=== PATIENT | male | born 1945 | race Caucasian/White ===

== ENCOUNTER 2019-01-24 17:43 | Emergency (ER) | payer OTHER ==
[~2019-01-24] VITALS: Ht 177.8 cm; Wt 105.2 kg
[~2019-01-24 17:43] MED LIST: AMLODIPINE BESYL5 MG PO; ASPIRIN81 M2 PO; BENADRYL ALLERG25 MG PO; DELUXE TABLET1 EACH; DOXYCYCLINE 10100 M1 PO; GRALISE600 MG PO; KEFLEX250 MG PO; OXYCODONE HCL15 MG PO; PROSCAR 5MG TABL5 M1 PO; SUDAFED 12 HOU120 MG PO; WELLBUTRIN 100100 MG PO
[2019-01-24] MEDS ORDERED: ALPRAZOLAM XR3 MG PO (17:52)
[2019-01-24] MEDS ORDERED: AMITRIPTYLINE H10 M1 PO (17:53)
[2019-01-24] MEDS ORDERED: ASA81BEC PO (17:53)
[2019-01-24] MEDS ORDERED: BUPROPION HCL100 MG PO (17:53)
[2019-01-24] MEDS ORDERED: BUPROPION XL300 MG PO (17:54)
[2019-01-24] MEDS ORDERED: VITAMIN D35000 UNI2 PO (17:54)
[2019-01-24] MEDS ORDERED: COLACE100 MG PO (17:55)
[2019-01-24] MEDS ORDERED: FAMOTIDINE 20 M20 MG PO (17:55)
[2019-01-24] MEDS ORDERED: DORYX MPC120 MG PO (17:55)
[2019-01-24] MEDS ORDERED: FUROSEMIDE 40 M40 MG PO (17:56)
[2019-01-24] MEDS ORDERED: NEURONTIN100 MG PO (17:56)
[2019-01-24] MEDS ORDERED: MUCUS ER600 M1 PO (17:56)
[2019-01-24] MEDS ORDERED: MELATONIN5 MG PO (17:57)
[2019-01-24] MEDS ORDERED: LISINOPRIL2.5 MG PO (17:57)
[2019-01-24] MEDS ORDERED: PERCOCET 10-321 EAC1 PO (17:58)
[2019-01-24] MEDS ORDERED: KLOR-CON 1010 MEQ PO (17:59)
[2019-01-24] MEDS ORDERED: MIRALAX119 GM PO (17:59)
[2019-01-24] MEDS ORDERED: FLOMAX0.4 MG PO (18:00)
[2019-01-24 19:01] LABS: HEMATOCRIT 40.5 % (42.0-52.0); HEMOGLOBIN 13.9 gm/dL (14.0-18.0); MCH 32.9 pg (26.0-34.0); MCHC 34.3 g/dL (28.0-37.0); PLATELET COUNT 292 thou/uL (150-400); RBC 4.22 mil/uL (4.50-6.00); RDW 14.2 % (10.5-14.5); WBC 18.4 thou/uL (4.0-11.0)
[2019-01-24 19:17] LABS: CALCIUM 9.6 mg/dL (8.5-10.1); CREATININE 1.3 mg/dL (0.7-1.3); POTASSIUM 3.6 mmol/L (3.5-5.1)
[2019-01-24 19:22] LABS: ALBUMIN 3.9 g/dL (3.4-5.0); TOTAL BILIRUBIN 0.6 mg/dL (<0.1-1.0); TOTAL PROTEIN 7.9 g/dL (6.4-8.2)
[2019-01-24 19:32] LABS: ABSOLUTE NEUTROPHILS 16.9 thou/uL (1.4-8.2)
[2019-01-24 21:16] LABS: URINE BILIRUBIN NEGATIVE (Negative); URINE BLOOD NEGATIVE (Negative); URINE CLARITY CLEAR; URINE COLOR YELLOW; URINE GLUCOSE-RANDOM* NEGATIVE (Negative); URINE KETONES TRACE (Negative); URINE LEUKOCYTES-REFLEX NEGATIVE (Negative); URINE NITRITE-REFLEX NEGATIVE (Negative); URINE PROTEIN (DIPSTICK) NEGATIVE (Negative); URINE SPECIFIC GRAVITY 1.025 (1.005-1.035); URINE UROBILINOGEN 0.2 E.U./dl (0.2-1.0)
[2019-01-24] MEDS ORDERED: AUGMENTIN 875-1 EACH PO (22:56)
[2019-01-24 23:57] VITALS: BP 154/88
[2019-01-25] MEDS ORDERED: TESSALON PERLE100 MG PO (18:01)
[2019-01-25] MEDS ORDERED: AUGMENTIN 875-1 EACH PO (18:01)
== END 2019-01-24 23:57 | disposition home or self-care (01) ==
LOC: ER 17:43
PROVIDERS: Emergency Medicine
DX: K59.00 Constipation, unspecified (principal); J22 Unspecified acute lower respiratory infection; E66.9 Obesity, unspecified; M47.812 Spondylosis without myelopathy or radiculopathy, cervical region; Z79.82 Long term (current) use of aspirin; Z79.899 Other long term (current) drug therapy; Z98.890 Other specified postprocedural states

== ENCOUNTER 2019-01-25 15:01 | Emergency (ER) | payer OTHER ==
[~2019-01-25] VITALS: Ht 177.8 cm; Wt 104.3 kg
[~2019-01-25 15:01] MED LIST changes: +ALPRAZOLAM XR3 MG PO; +AMITRIPTYLINE H10 M1 PO; +ASA81BEC PO; +AUGMENTIN 875-1 EACH PO; +BUPROPION HCL100 MG PO; +BUPROPION XL300 MG PO; +COLACE100 MG PO; +DORYX MPC120 MG PO; +FAMOTIDINE 20 M20 MG PO; +FLOMAX0.4 MG PO; +FUROSEMIDE 40 M40 MG PO; +KLOR-CON 1010 MEQ PO; +LISINOPRIL2.5 MG PO; +MELATONIN5 MG PO; +MIRALAX119 GM PO; +MUCUS ER600 M1 PO; +NEURONTIN100 MG PO; +PERCOCET 10-321 EAC1 PO; +VITAMIN D35000 UNI2 PO
[2019-01-25 16:19] LABS: URINE BILIRUBIN NEGATIVE (Negative); URINE BLOOD NEGATIVE (Negative); URINE CLARITY CLEAR; URINE COLOR YELLOW; URINE GLUCOSE-RANDOM* NEGATIVE (Negative); URINE KETONES TRACE (Negative); URINE LEUKOCYTES-REFLEX NEGATIVE (Negative); URINE NITRITE-REFLEX NEGATIVE (Negative); URINE PROTEIN (DIPSTICK) NEGATIVE (Negative); URINE UROBILINOGEN 0.2 E.U./dl (0.2-1.0)
[2019-01-25 17:29] LABS: HEMOGLOBIN 13.2 gm/dL (14.0-18.0); MCH 32.6 pg (26.0-34.0); MCHC 33.9 g/dL (28.0-37.0); MCV 96.1 fL (80.0-100.0); RBC 4.06 mil/uL (4.50-6.00); RDW 14.5 % (10.5-14.5); WBC 12.1 thou/uL (4.0-11.0)
[2019-01-25 18:00] VITALS: BP 139/67
[2019-01-25] MEDS ORDERED: AUGMENTIN 875-1 EACH PO (18:01)
[2019-01-25] MEDS ORDERED: TESSALON PERLE100 MG PO (18:01)
== END 2019-01-25 18:00 | disposition home or self-care (01) ==
LOC: ER 15:01
PROVIDERS: Emergency Medicine; Nurse Practitioner
DX: R33.9 Retention of urine, unspecified (principal); R05 Cough; M47.812 Spondylosis without myelopathy or radiculopathy, cervical region; Z79.82 Long term (current) use of aspirin; Z79.899 Other long term (current) drug therapy